=== PATIENT | female | born 1960 | race Caucasian/White ===

== ENCOUNTER 2019-08-07 07:30 | Inpatient (IN) ==
[2019-09-04] MEDS ORDERED: Lactated Ringers 1000 ml BAG 1,000 ML IV SCH (06:00)
[2019-09-04] MEDS ORDERED: ceFAZolin 2 GM PREMIX in ORs 2 GM/50 ML BAG ONE ×2 (06:10→12:19)
[2019-09-04] MEDS ORDERED: Bacitracin INJECTION 50,000 UNITS ONE (06:43)
[2019-09-04] MEDS ORDERED: Ketamine HCL 50 mg/ml 10 ml VIAL (500 MG) ONE (07:10)
[2019-09-04] MEDS ORDERED: Lidocaine 2% PF 5 ML VIAL ONE (07:10)
[2019-09-04] MEDS ORDERED: Propofol 10 MG/ML 20 ML BTL ONE (07:10)
[2019-09-04] MEDS ORDERED: fentaNYL 250 mcg/5 ml 50 MCG/ML 5 ml VIAL (250 MCG) ONE (07:10)
[2019-09-04] MEDS ORDERED: Midazolam 2 mg/2 ml VIAL 1 mg/ml 2 ml VIAL (2 mg) ONE ×2 (07:11→09:18)
[2019-09-04] MEDS ORDERED: Remifentanil 2 MG VIAL ONE (07:11)
[2019-09-04] MEDS ORDERED: Rocuronium 50 mg VIAL 10 mg/ml 5 ml VIAL (50 mg) ONE (07:32)
[2019-09-04] MEDS ORDERED: EPHEDrine (Pressors) 50 MG/ML VIAL ONE (09:18)
[2019-09-04] MEDS ORDERED: Acetaminophen IV 1 GM/100ML 100 ML ONE (11:59)
[2019-09-04] MEDS ORDERED: HYDROmorphone 1 MG/1 ML SYRINGE ONE (12:15)
[2019-09-04] MEDS ORDERED: ceFAZolin VIAL(*) VIAL ONE (12:15)
[2019-09-04] MEDS ORDERED: Glycopyrrolate IV 0.2 MG/ML 1 ML VIAL ONE (12:16)
[2019-09-04] MEDS ORDERED: Propofol 10 mg/ml 100 ML BTL 200 ML ONE (12:22)
[2019-09-04] MEDS ORDERED: Ondansetron 4 mg VIAL 2 MG/ML 2 ml VIAL IV PRN ×2 (13:25→13:33)
[2019-09-04] MEDS ORDERED: Magnesium Hydroxide LIQ 30 ML UDC PO PRN (13:25)
[2019-09-04] MEDS ORDERED: HYDROcodone/ACETAMIN 5/325 mg TAB PO PRN ×2 (13:25)
[2019-09-04] MEDS ORDERED: Naloxone 0.4 mg VIAL 0.4 mg/ml 1 ml VIAL IV PRN (13:33)
[2019-09-04] MEDS ORDERED: DiMENhydriNATE IV 50 mg/ml 1 ml VIAL IV PUSH PRN (13:33)
[2019-09-04] MEDS ORDERED: fentaNYL 100 mcg/2 ml 50 MCG/ML VIAL ONE (13:40)
[2019-09-04] MEDS: fentaNYL 100 mcg/2 ml 50 MCG/ML VIAL IV PRN ×2 (13:42→13:59)
[2019-09-04] MEDS ORDERED: MELOXICAM 7.5 MG PO PRN (15:02)
[2019-09-04] MEDS: Lactated Ringers 1000 ml BAG 1,000 ML IV SCH ×2 (15:27→23:30)
[2019-09-04] MEDS ORDERED: Senna TAB 8.6 mg TAB PO PRN (16:47)
[2019-09-04] MEDS ORDERED: fentaNYL 100 mcg/2 ml 50 MCG/ML VIAL IV SLOW PU ONE (17:46)
[2019-09-04] MEDS ORDERED: Prochlorperazine 5 mg/ml 2 ml VIAL (10 mg) IV PRN (18:19)
[2019-09-04] MEDS ORDERED: Senna TAB 8.6 mg TAB PO SCH (21:00)
[2019-09-05] MEDS: Lactated Ringers 1000 ml BAG 1,000 ML IV SCH (07:57)
[2019-09-05] MEDS ORDERED: Olopatadine 0.2% (NF) 1 DROP BTL BOTH EYES SCH (09:00)
[2019-09-05 15:10] VITALS: BP 122/60
== END 2019-09-05 17:10 | disposition home health service (06) | DRG 304 ==
LOC: AA 09-04 05:54 → SSU 09-04 13:25
PROVIDERS: ADMIT Neurological Surgery; ATTEND Neurological Surgery